=== PATIENT | male | born 1960 | race Caucasian/White ===

== ENCOUNTER → 2024-09-20 14:31 | Outpatient (REF) | payer OTHER, SELFPAY | LOC: MRI 3T 14:31 | PROVIDERS: ATTENDING PHYSICIAN Specialist; FAMILY PHYSICIAN Family Medicine | DX: R97.20 Elevated prostate specific antigen [PSA] (principal) | CPT/HCPCS: 72197; A9575 ==

== ENCOUNTER → 2024-12-12 15:10 | Outpatient (REF) | payer OTHER, SELFPAY | LOC: RAD 15:10 | PROVIDERS: ATTENDING PHYSICIAN Family Medicine | DX: R10.A2 Flank pain, left side (principal) | CPT/HCPCS: 74176 ==